=== PATIENT | male | born 1960 | race Caucasian/White ===

== ENCOUNTER 2018-03-18 13:34 | Emergency (ER) | payer SELFPAY ==
[2018-03-18] MEDS ORDERED: METOCLOPRAMIDE HCL ORAL SOLN 10 MG/10 ML UDCUP PO ONE (15:40)
[2018-03-18] MEDS ORDERED: MAG HYDROX/AL HYDROX/SIMETH SUSP 30 ML UDCUP PO ONE (15:40)
[2018-03-18] MEDS ORDERED: LIDOCAINE 2% VISCOUS SOLN 20 ML UDCUP PO ONE (15:40)
--- NOTE | 2018-03-18 15:41 | ER Document Report ---
ED Medical Screen (RME) - General Chief Complaint: Abdominal Pain Stated Complaint: ABDOMINAL PAIN Time Seen by Provider: 03/18/18 15:33 TRAVEL OUTSIDE OF THE [place] IN LAST 30 DAYS: No - Related Data Allergies/Adverse Reactions: No Known Allergies Allergy (Verified 03/18/18 13:37) Past Medical History - Past Medical History Cardiac Medical History: Reports: Hx Hypercholesterolemia, Hx Hypertension - Lisinopril Endocrine Medical History: Reports: Hx Diabetes Mellitus Type 2 - metformin, Hx Hyperthyroidism Renal/ Medical History: Reports: Hx Kidney Stones. Denies: Hx Peritoneal Dialysis GI Medical History: Reports: Hx Gastroesophageal Reflux Disease - Omeprazole - Immunizations Hx Diphtheria, Pertussis, Tetanus Vaccination: Yes Physical Exam - Vital signs Vitals: Temp Pulse Resp BP Pulse Ox 97.8 F 77 18 134/74 H 98 03/18/18 14:07 03/18/18 14:07 03/18/18 14:07 03/18/18 14:07 03/18/18 14:07 Course - Re-evaluation Re-evalutation: 03/18/18 15:40 57-year-old who had dark stools a week and a half ago that presented with worsening abdominal pain and reflux symptoms. I have seen and evaluated this patient, they have undergone a rapid medical screening examination, they will require reevaluation further examination potential further diagnostics and disposition determination by secondary provider. - Vital Signs Vital signs: Temp Pulse Resp BP Pulse Ox 97.8 F 77 18 134/74 H 98 03/18/18 14:07 03/18/18 14:07 03/18/18 14:07 03/18/18 14:07 03/18/18 14:07
--- NOTE | 2018-03-18 16:54 | RADIOLOGY REPORT (SQ) ---
EXAM DESCRIPTION: ACUTE ABDOMEN SERIES COMPLETED DATE/TIME: 03/18/2018 4:43 pm REASON FOR STUDY: abdominal pain COMPARISON: None. NUMBER OF VIEWS: Three views. TECHNIQUE: Frontal chest, supine abdomen and upright/decubitus abdomen radiographic images acquired. LIMITATIONS: None. FINDINGS: CHEST: The heart is normal. The pulmonary vasculature is normal. Lung rockwell are clear o f infiltrates or effusions. Trachea midline. Bony structures intact. No pneumoperitoneum. FREE AIR: None. No abnormal gas collections. BOWEL GAS PATTERN: Scattered gas and fecal material throughout the colon consistent with constipation . Nonspecific bowel-gas pattern. CALCIFICATIONS: No suspicious calcifications. HARDWARE: None in the abdomen. SOFT TISSUES: No gross mass or suggestion of organomegaly. BONES: No acute fracture. No worrisome bone lesions. OTHER: No other significant finding. IMPRESSION: No acute disease. Constipation. TECHNICAL DOCUMENTATION: JOB ID: [id number] SC-[id number] 2010 [employer]- All Rights Reserved Reading location - IP/workstation name: [email or web address]
[2018-03-18 17:29] LABS: ABSOLUTE BASOPHILS # (AUTO) 0.1 10^3/uL (0.0-0.2); ABSOLUTE EOSINOPHILS # (AUTO) 2.3 10^3/uL (0.0-0.6); ABSOLUTE LYMPHOCYTES (AUTO) 3.1 10^3/uL (0.5-4.7); ABSOLUTE MONOCYTES (AUTO) 0.6 10^3/uL (0.1-1.4); ABSOLUTE NEUT (AUTO) 6.2 10^3/uL (1.7-8.2); BASOPHILS % (AUTO) 0.7 % (0-2); EOSINOPHILS % (AUTO) 18.3 % (0-6); HEMATOCRIT 43.9 % (37.9-51.0); HEMOGLOBIN 15.1 g/dL (13.5-17.0); LYMPHOCYTES % (AUTO) 25.3 % (13-45); MEAN CORPUSCULAR HEMOGLOBIN 31.8 pg (27.0-33.4); MEAN CORPUSCULAR HGB CONC 34.3 g/dL (32.0-36.0); MEAN CORPUSCULAR VOLUME 93 fl (80-97); PLATELET COUNT 249 10^3/uL (150-450); RED BLOOD COUNT 4.73 10^6/uL (4.35-5.55); RED CELL DISTRIBUTION WIDTH 13.5 % (11.5-14.0); SEGMENTED NEUTROPHILS % (AUTO) 50.7 % (42-78); TOTAL CELLS COUNTED % (AUTO) 100 %; WHITE BLOOD COUNT 12.3 10^3/uL (4.0-10.5)
[2018-03-18 17:41] LABS: ALANINE AMINOTRANSFERASE 46 U/L (21-72); ALBUMIN 4.4 g/dL (3.5-5.0); ALKALINE PHOSPHATASE 87 U/L (38-126); ANION GAP 10 (5-19); ASPARTATE AMINO TRANSFERASE 30 U/L (17-59); BILIRUBIN,DIRECT 0.2 mg/dL (0.0-0.4); BILIRUBIN,TOTAL 0.5 mg/dL (0.2-1.3); BLOOD UREA NITROGEN 14 mg/dL (7-20); CALCIUM 9.5 mg/dL (8.4-10.2); CARBON DIOXIDE 27 mmol/L (22-30); CHLORIDE 99 mmol/L (98-107); GLUCOSE 151 mg/dL (75-110); LIPASE 34.8 U/L (23-300); POTASSIUM 4.4 mmol/L (3.6-5.0); SODIUM 135.7 mmol/L (137-145); TOTAL PROTEIN 7.2 g/dL (6.3-8.2)
--- NOTE | 2018-03-18 18:55 | ER Document Report ---
ED General - General Chief Complaint: Abdominal Pain Stated Complaint: ABDOMINAL PAIN Time Seen by Provider: 03/18/18 15:33 TRAVEL OUTSIDE OF THE [place] IN LAST 30 DAYS: No - HPI Patient complains to provider of: Abdominal pain Onset: Other - There is a gentleman with recurrent gastritis as well as esophagitis in the past that presents for evaluation of burning abdominal pain today which prompted him to leave work early. He has taken Prilosec in the past but has never had symptoms this bad he says that he does not know what is causing it. Did get some beads of sweat at the time that it began. Denies specifically any episodes of emesis, any change in his bowel movements which have been normal. He not take anything to try and help with this except for some Pepto-Bismol which did seem to help a little bit. Did note that this happened approximately 2 weeks ago and is been developing over signs with some episodes of diarrhea. - Related Data Allergies/Adverse Reactions: No Known Allergies Allergy (Verified 03/18/18 13:37) Past Medical History - General Information source: Patient - Social History Smoking Status: Unknown if Ever Smoked Family History: Reviewed & Not Pertinent Patient has suicidal ideation: No Patient has homicidal ideation: No - Past Medical History Cardiac Medical History: Reports: Hx Hypercholesterolemia, Hx Hypertension - Lisinopril Endocrine Medical History: Reports: Hx Diabetes Mellitus Type 2 - metformin, Hx Hyperthyroidism Renal/ Medical History: Reports: Hx Kidney Stones. Denies: Hx Peritoneal Dialysis GI Medical History: Reports: Hx Gastroesophageal Reflux Disease - Omeprazole - Immunizations Hx Diphtheria, Pertussis, Tetanus Vaccination: Yes Review of Systems - Review of Systems -: Yes All other systems reviewed and negative Physical Exam - Vital signs Vitals: Temp Pulse Resp BP Pulse Ox 97.8 F 77 18 134/74 H 98 03/18/18 14:07 03/18/18 14:07 03/18/18 14:07 03/18/18 14:07 03/18/18 14:07 Interpretation: Normal - General General appearance: Appears well, Alert - HEENT Head: Normocephalic, Atraumatic Eyes: Normal Pupils: PERRL - Respiratory Respiratory status: No respiratory distress Chest status: Nontender Breath sounds: Normal Chest palpation: Normal - Cardiovascular Rhythm: Regular Heart sounds: Normal auscultation Murmur: No - Abdominal Inspection: Normal Distension: No distension Bowel sounds: Normal Tenderness: Nontender Organomegaly: No organomegaly - Back Back: Normal, Nontender - Extremities General upper extremity: Normal inspection, Nontender, Normal color, Normal ROM, Normal temperature General lower extremity: Normal inspection, Nontender, Normal color, Normal ROM, Normal temperature, Normal weight bearing. No: Rajiv's sign - Neurological Neuro grossly intact: Yes Cognition: Normal Orientation: AAOx4 Malka Coma Scale Eye Opening: Spontaneous Malka Coma Scale Verbal: Oriented Patterson Coma Scale Motor: Obeys Commands Patterson Coma Scale Total: 15 Speech: Normal Motor strength normal: LUE, RUE, LLE, RLE Sensory: Normal - Psychological Associated symptoms: Normal affect, Normal mood - Skin Skin Temperature: Warm Skin Moisture: Dry Skin Color: Normal Course - Re-evaluation Re-evalutation: 57-year-old man who presents with burning abdominal pain which makes him nauseous and sometimes belch in the setting of a previous what sounds like enteritis. On examination he is a nondiagnostic abdominal tenderness diffusely mostly periumbilically. Diffuse gassy pain. We will administer a GI cocktail, will administer a stronger painkiller as well. We will obtain CBC CMP as well as a abdominal series. CMP is nondiagnostic, CBC is nondiagnostic. Patient's abdominal series does demonstrate what appears to be constipation throughout the abdomen. On reassessment the patient's abdominal exam is improved, he says that he has no pain at this time after the medications previously. He is able to tolerate p.o., has no nausea at this time no vomiting. We discussed the constipation and his symptoms, we will attempt to control his symptoms utilizing Carafate, MiraLAX, his home antacid, and magnesium citrate. He was strictly encouraged to come back in case of any worsening in his symptoms as it could be a early developing more serious abdominal pathology though not evident at this time such as diverticulitis perforated bowel or otherwise. - Vital Signs Vital signs: Temp Pulse Resp BP Pulse Ox 98 F 68 18 133/76 H 100 03/18/18 19:34 03/18/18 19:34 03/18/18 19:34 03/18/18 19:34 03/18/18 19:34 - Laboratory Result Diagrams: 03/18/18 16:37 03/18/18 16:37 Laboratory results interpreted by me: 03/18/18 03/18/18 16:37 16:37 WBC 12.3 H Eosinophils % 18.3 H Absolute Eosinophils 2.3 H Sodium 135.7 L Glucose 151 H Discharge - Discharge Clinical Impression: Abdominal pain Qualifiers: Abdominal location: unspecified location Qualified Code(s): R10.9 - Unspecified abdominal pain Constipation Qualifiers: Constipation type: unspecified constipation type Qualified Code(s): K59.00 - Constipation, unspecified Gastritis Qualifiers: Gastritis type: unspecified gastritis Chronicity: unspecified Gastritis bleeding: without bleeding Qualified Code(s): K29.70 - Gastritis, unspecified, without bleeding Condition: Good Disposition: HOME, SELF-CARE Instructions: Abdominal Pain ([facility]), Antinausea Medication ([facility]) Additional Instructions: You were seen today in the emergency department for abdominal pain. You had evaluation including blood work as well as x-rays of your abdomen. It appears that you are constipated. You should start taking MiraLAX, 2 servings every 2 hours. If you do not have a bowel movement in 6-8 hours take half of the bottle of magnesium citrate prescribed to you. You do not have a bowel movement 2 hours after taking the magnesium citrate finish the bottle. I believe you also may have bad gastritis at this time. You have been given an acid blocking pill. You have also been given a medicati on to help soothe your stomach. Use these medications as prescribed. You have been given a prescription in case of nausea called Zofran. You should return in case of worsening fevers, chills, vomiting or inability to eat or drink. Prescriptions: Magnesium Citrate [Citrate of Magnesia 296 ml Bottle] 296 ml PO DAILY #1 bottle Ondansetron [Zofran Odt 4 mg Tablet] 1 - 2 tab PO Q4H PRN #15 tab.rapdis PRN Reason: For Nausea/Vomiting Polyethylene Glycol 3350 [Miralax Powder 17 gm/Packet] 1 packet PO BID #1 pkg Sucralfate [Carafate] 1 gm PO TID #30 oral.susp Referrals: [facility] [Provider Group] - Follow up as needed
[2018-03-18 19:35] VITALS: BP 133/76
== END 2018-03-18 19:44 | disposition home or self-care (01) ==
LOC: ER 13:34
DX: K59.00 Constipation, unspecified (principal); K29.70 Gastritis, unspecified, without bleeding; I10 Essential (primary) hypertension; E11.9 Type 2 diabetes mellitus without complications
CPT/HCPCS: 99284; 36415; 83690; 85025; 80053; 74022; J3490

== ENCOUNTER 2018-08-06 17:50 | Emergency (ER) | payer SELFPAY ==
[2018-08-06 17:56] VITALS: BP 132/69
--- NOTE | 2018-08-06 18:26 | ER Document Report ---
HPI - HPI Time Seen by Provider: 08/06/18 18:11 Pain Level: 2 Notes: Patient is a 58-year-old male with a history of type 2 diabetes who presents complaining of generalized pruritic rash that began 2 days ago. Patient states that he has tried Benadryl minimal relief. He has not had any new clothing, foods, detergents, soaps, chemicals. No known exposure to insect bites or ticks. No recent travel or illness. Patient states that he otherwise feels well aside from being pruritic. He is eating and drinking without difficulty. He is urinating normally. Denies drug allergies. Denies any headache, fever, neck pain, URI, sore throat, chest pain, palpitations, syncope, cough, shortness of breath, wheeze, dyspnea, abdominal pain, nausea/vomiting/diarrhea, urinary retention, dysuria, hematuria, joint pain. - ROS Systems Reviewed and Negative: Yes All other systems reviewed and negative - REPRODUCTIVE Reproductive: DENIES: : Past Medical History - Social History Smoking Status: Never Smoker Family History: Reviewed & Not Pertinent - Past Medical History Cardiac Medical History: Reports: Hx Hypercholesterolemia, Hx Hypertension - Lisinopril Endocrine Medical History: Reports: Hx Diabetes Mellitus Type 2 - metformin, Hx Hyperthyroidism Renal/ Medical History: Reports: Hx Kidney Stones. Denies: Hx Peritoneal Dialysis GI Medical History: Reports: Hx Gastroesophageal Reflux Disease - Omeprazole - Immunizations Hx Diphtheria, Pertussis, Tetanus Vaccination: Yes Vertical Provider Document - CONSTITUTIONAL Agree With Documented VS: Yes Notes: PHYSICAL EXAMINATION: GENERAL: Well-appearing, well-nourished and in no acute distress. HEAD: Atraumatic, normocephalic. EYES: Pupils equal round and reactive to light, extraocular movements intact, sclera anicteric, conjunctiva are normal. ENT: Nares patent and without discharge. oropharynx clear without exudates. No tonsilar hypertrophy or erythema. Moist mucous membranes. NECK: Normal range of motion, supple without lymphadenopathy LUNGS: Breath sounds clear to auscultation bilaterally and equal. No wheezes rales or rhonchi. HEART: Regular rate and rhythm without murmurs, rubs, gallops. ABDOMEN: Soft, nontender, nondistended abdomen. No guarding, no rebound. Normal bowel sounds present. No CVA tenderness bilaterally. Musculoskeletal: FROM to passive/active. Strength 5+/5. Extremities: No cyanosis, clubbing, or edema b/l. Peripheral pulses 2+. Capil guy refill less than 3 seconds. NEUROLOGICAL: Normal speech, normal gait. PSYCH: Normal mood, normal affect. SKIN: maculopapular mildly erythemic rash noted generalized to the trunk/extremities sparing the palms/soles/oral mucosa. Non-tender. No fluctuance, induration, or streaks. - INFECTION CONTROL TRAVEL OUTSIDE OF THE [place] IN LAST 30 DAYS: No Course - Re-evaluation Re-evalutation: 08/06/18 19:00 Patient is an afebrile, well-hydrated, 58-year-old male who presents with a nonspecific skin rash that resembles a heat rash. Vitals are acceptable without significant tachycardia, tachypnea, or hypoxia. PE is otherwise unremarkable. Patient was evaluated by Dr. Michaud as well. Patient is nontoxic-appearing and is tolerating p.o. without difficulty. No labs or imaging warranted. Patient was given Benadryl and Pepcid today. Low suspicion for any SJS, and excising fasciitis, Belfair spotted fever, Lyme disease, cellulitis, SSS, sepsis, meningitis, or other systemic emergent condition at this time. Patient is a diabetic so we will avoid steroids. We will send him home with a prescription for Atarax. Conservative measures as reviewed. Recheck with your PCM in 3 to 5 days. Return to the ED with any other worsening/concerning symptoms. Patient is in agreement. - Vital Signs Vital signs: Temp Pulse Resp BP Pulse Ox 97.9 F 87 18 132/69 H 95 08/06/18 17:54 08/06/18 17:54 08/06/18 17:54 08/06/18 17:54 08/06/18 17:54 Discharge - Discharge Clinical Impression: Rash and nonspecific skin eruption, Heat rash Condition: Stable Disposition: HOME, SELF-CARE Additional Instructions: Keep the skin clean Wash with tar-based Neutrogena soap and water Benadryl/Pepcid may help Avoid taking hot baths or showers. Cool baths and showers may help Avoid excessive exposure to heat Take medication as directed Monitor for any worsening symptoms Recheck with your PCM in 3-5 days Consider consult with dermatology for ongoing/worsening symptoms Return to the ED with any worsening symptoms and/or development of fever, headache, chest pain, palpitations, syncope, shortness of breath, trouble breathing, abdominal pain, n/v/d, abscess, purulent discharge, red streaks, worsening swelling, or other worsening symptoms that are concerning to you. Prescriptions: Hydroxyzine Pamoate [Vistaril 25 mg Capsule] 25 mg PO TID PRN #30 capsule PRN Reason: Forms: Elevated Blood Pressure Referrals: DORIE DIAZ DO [ACTIVE STAFF] - Follow up as needed
[2018-08-06] MEDS ORDERED: FAMOTIDINE 20 MG TABLET PO ONE (18:30)
[2018-08-06] MEDS ORDERED: DIPHENHYDRAMINE HCL 50 MG CAPSULE PO ONE (18:30)
[2018-08-06] MEDS ORDERED: HYDROXYZINE PAMOATE 25 MG CAPSULE PO ONE (19:05)
== END 2018-08-06 19:13 | disposition home or self-care (01) ==
LOC: ER 17:50
DX: L74.0 Miliaria rubra (principal); R21 Rash and other nonspecific skin eruption; I10 Essential (primary) hypertension; Z79.899 Other long term (current) drug therapy; E11.9 Type 2 diabetes mellitus without complications; Z79.84 Long term (current) use of oral hypoglycemic drugs
CPT/HCPCS: 99282

== ENCOUNTER 2019-01-03 16:19 | Emergency (ER) | payer SELFPAY ==
[2019-01-03] MEDS ORDERED: ACETAMINOPHEN 325 MG TABLET PO ONE (16:46)
[2019-01-03] MEDS ORDERED: KETOROLAC TROMETHAMINE INJ/PF 30 MG/1 ML SDV IV ONE (16:46)
[2019-01-03] MEDS ORDERED: NORMAL SALINE 1000 ML 1,000 ML IV ONE (16:47)
--- NOTE | 2019-01-03 16:50 | ER Document Report ---
ED Medical Screen (RME) - General Chief Complaint: Urinary Problem Stated Complaint: BACK PAIN, DIFFICULTY URINATING Time Seen by Provider: 01/03/19 16:41 Notes: Patient is a 58-year-old male who presents emergency department with a chief complaint of back pain. His pain started about 4 days ago. He also is having urinary symptoms such as frequency, urgency, and burning. 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 Past medical history includes diabetes and hypothyroidism. Exam: Bilateral CVA tenderness. I have greeted and performed a rapid initial assessment of this patient. A comprehensive ED assessment and evaluation of the patient, analysis of test results and completion of medical decision making process will be conducted by an additional ED providers. TRAVEL OUTSIDE OF THE [place] IN LAST 30 DAYS: No - Related Data Allergies/Adverse Reactions: No Known Allergies Allergy (Verified 01/03/19 16:28) Home Medications: lovastatin,trulicity, metformin, levothyroxine lisinopril Past Medical History - Social History Chew tobacco use (# tins/day): No Frequency of alcohol use: None Drug Abuse: None - Past Medical History Cardiac Medical History: Reports: Hx Hypercholesterolemia, Hx Hypertension - Lisinopril Endocrine Medical History: Reports: Hx Diabetes Mellitus Type 2 - metformin, Hx Hyperthyroidism Renal/ Medical History: Reports: Hx Kidney Stones. Denies: Hx Peritoneal Dialysis GI Medical History: Reports: Hx Gastroesophageal Reflux Disease - Omeprazole - Immunizations Hx Diphtheria, Pertussis, Tetanus Vaccination: Yes Physical Exam - Vital signs Vitals: Temp Pulse Resp BP Pulse Ox 98.0 F 97 20 122/62 96 01/03/19 16:29 01/03/19 16:29 01/03/19 16:29 01/03/19 16:29 01/03/19 16:29 Course - Vital Signs Vital signs: Temp Pulse Resp BP Pulse Ox 98.0 F 97 20 122/62 96 01/03/19 16:29 01/03/19 16:29 01/03/19 16:29 01/03/19 16:29 01/03/19 16:29
[2019-01-03 17:33] LABS: ABSOLUTE BASOPHILS # (AUTO) 0.1 10^3/uL (0.0-0.2); ABSOLUTE EOSINOPHILS # (AUTO) 0.2 10^3/uL (0.0-0.6); ABSOLUTE LYMPHOCYTES (AUTO) 2.6 10^3/uL (0.5-4.7); ABSOLUTE MONOCYTES (AUTO) 0.6 10^3/uL (0.1-1.4); ABSOLUTE NEUT (AUTO) 4.6 10^3/uL (1.7-8.2); BASOPHILS % (AUTO) 1.1 % (0-2); HEMOGLOBIN 14.8 g/dL (13.5-17.0); LYMPHOCYTES % (AUTO) 32.3 % (13-45); MEAN CORPUSCULAR HEMOGLOBIN 31.8 pg (27.0-33.4); MEAN CORPUSCULAR HGB CONC 34.5 g/dL (32.0-36.0); MEAN CORPUSCULAR VOLUME 92 fl (80-97); MONOCYTES % (AUTO) 7.3 % (3-13); PLATELET COUNT 256 10^3/uL (150-450); RED BLOOD COUNT 4.67 10^6/uL (4.35-5.55); RED CELL DISTRIBUTION WIDTH 13.8 % (11.5-14.0); SEGMENTED NEUTROPHILS % (AUTO) 56.3 % (42-78); TOTAL CELLS COUNTED % (AUTO) 100 %; WHITE BLOOD COUNT 8.2 10^3/uL (4.0-10.5)
[2019-01-03 17:42] LABS: APPEARANCE,URINE SLIGHTLY-CLOUDY; BILIRUBIN,URINE NEGATIVE (NEGATIVE); COLOR,URINE YELLOW; GLUCOSE, URINE 50 mg/dL (NEGATIVE); KETONES,URINE NEGATIVE (NEGATIVE); LEUKOCYTE ESTERASE,URINE LARGE (NEGATIVE); NITRITE,URINE NEGATIVE (NEGATIVE); PROTEIN,URINE NEGATIVE (NEGATIVE); URINE SPECIFIC GRAVITY 1.018; UROBILINOGEN,URINE NEGATIVE mg/dL (<2.0)
--- NOTE | 2019-01-03 18:06 | RADIOLOGY REPORT (SQ) ---
EXAM DESCRIPTION: CT ABD/PELVIS NO ORAL OR IV COMPLETED DATE/TIME: 01/03/2019 5:39 pm REASON FOR STUDY: back pain; urinary symptoms COMPARISON: 07/24/2014 TECHNIQUE: CT scan of the abdomen and pelvis performed without intravenous or oral contrast. Images reviewed with lung, soft tissue, and bone windows. Reconstructed coronal and sagittal MPR images revi ewed. All images stored on PACS. All CT scanners at this facility use dose modulation, iterative reconstruction, and/or weight based d osing when appropriate to reduce radiation dose to as low as reasonably achievable (ALARA). [facility]: Dose Right [facility]: CareDose [facility]: Dose Right [facility]: Teradose 4D [facility]: [employer] RADIATION DOSE: mGy. LIMITATIONS: None. FINDINGS: LOWER CHEST: No significant findings. No nodules or infiltrates. NON-CONTRASTED LIVER, SPLEEN, ADRENALS: The liver is diffusely hypoattenuating. No masses. The sple en and adrenal glands are unremarkable. PANCREAS: No masses. No peripancreatic inflammatory changes. GALLBLADDER: No identified stones by CT criteria. No inflammatory changes to suggest cholecystitis. RIGHT KIDNEY AND URETER: No suspicious masses. Assessment limited by lack of IV contrast. No signif icant calcifications. No hydronephrosis or hydroureter. LEFT KIDNEY AND URETER: No suspicious masses. Assessment limited by lack of IV contrast. No signifi cant calcifications. No hydronephrosis or hydroureter. AORTA AND RETROPERITONEUM: No aneurysm. No retroperitoneal masses or adenopathy. BOWEL AND PERITONEAL CAVITY: No obvious masses or inflammatory changes. No free fluid. APPENDIX: Normal. PELVIS, BLADDER, AND ABDOMINAL WALL:No abnormal masses. No free fluid. Bladder normal. BONES: No significant findings. OTHER: No other significant finding. IMPRESSION: Hepatic steatosis. No other significant finding in the abdomen or pelvis. COMMENT: Quality ID # [id number]: Final reports with documentation of one or more dose reduction techniques (e.g., Automated exposure control, adjustment of the mA and/or kV according to patient size, use of iterative reconstruction technique) TECHNICAL DOCUMENTATION: JOB ID: [id number] [employer]- All Rights Reserved Reading location - IP/workstation name: [email or web address]
[2019-01-03 18:07] LABS: ALBUMIN 4.4 g/dL (3.5-5.0); ALKALINE PHOSPHATASE 121 U/L (38-126); ANION GAP 13 (5-19); ASPARTATE AMINO TRANSFERASE 26 U/L (17-59); BILIRUBIN,DIRECT 0.2 mg/dL (0.0-0.4); BILIRUBIN,TOTAL 0.5 mg/dL (0.2-1.3); BLOOD UREA NITROGEN 13 mg/dL (7-20); CALCIUM 9.9 mg/dL (8.4-10.2); CARBON DIOXIDE 23 mmol/L (22-30); CHLORIDE 102 mmol/L (98-107); GLUCOSE 239 mg/dL (75-110); POTASSIUM 4.3 mmol/L (3.6-5.0); TOTAL PROTEIN 7.3 g/dL (6.3-8.2)
[2019-01-03] MEDS ORDERED: CEFTRIAXONE 2 GM/D5W RTU 2 GM/50 ML RTUPB IV ONE (18:28)
--- NOTE | 2019-01-03 18:30 | ER Document Report ---
ED GI/ - General Chief Complaint: Urinary Problem Stated Complaint: BACK PAIN, DIFFICULTY URINATING Time Seen by Provider: 01/03/19 16:41 Primary Care Provider: WAYNE JAMES MD [Primary Care Provider] - Follow up in 3-5 days Mode of Arrival: Ambulatory Information source: Patient Notes: 58-year-old male presented to ED for complaint of burning frequency and urgency with urination x4 days. He states he started having pain in his back yesterday. He has pain and bilateral flank areas. When he was seen in the pit urine blood and CT were ordered. The CAT scan is negative for any flank pain he does have fatty liver. He also has a urinary tract infection. I have ordered him Rocephin 2 g IM he is already had Toradol Tylenol and a liter of fluids. We will send his urine for culture and sending home on Bactrim TRAVEL OUTSIDE OF THE [place] IN LAST 30 DAYS: No - HPI Patient complains to provider of: Other - Burning frequency urgency with urine and flank pain Onset: Other - Frequency and urgency for 4 days flank pain since yesterday Timing/Duration: Gradual, Worse Quality of pain: Burning Severity at maximum: Severe Severity in ED: Moderate Pain Level: 5 Location: Left flank, Right flank, Pelvis Associated symptoms: Hematuria Exacerbated by: Sitting, Movement, Walking Relieved by: Denies Similar symptoms previously: No Recently seen / treated by doctor: No - Related Data Allergies/Adverse Reactions: No Known Allergies Allergy (Verified 01/03/19 16:28) Home Medications: lovastatin,trulicity, metformin, levothyroxine lisinopril Past Medical History - General Information source: Patient - Social History Smoking Status: Never Smoker Chew tobacco use (# tins/day): No Frequency of alcohol use: None Drug Abuse: None Lives with: Family Family History: Reviewed & Not Pertinent Patient has suicidal ideation: No Patient has homicidal ideation: No - Past Medical History Cardiac Medical History: Reports: Hx Hypercholesterolemia, Hx Hypertension - Lisinopril Pulmonary Medical History: Reports: None EENT Medical History: Reports: None Neurological Medical History: Reports: None Endocrine Medical History: Reports: Hx Diabetes Mellitus Type 2 - metformin, Hx Hyperthyroidism Renal/ Medical History: Reports: Hx Kidney Stones Malignancy Medical History: Denies None GI Medical History: Reports: Hx Gastroesophageal Reflux Disease - Omeprazole Musculoskeletal Medical History: Reports Hx Arthritis, Reports Hx Musculoskeletal Deformity, Reports Hx Musculoskeletal Trauma Skin Medical History: Reports None Psychiatric Medical History: Reports: None Traumatic Medical History: Reports: None Infectious Medical History: Reports: None Past Surgical History: Reports: Hx Orthopedic Surgery - Back - Immunizations Hx Diphtheria, Pertussis, Tetanus Vaccination: Yes Review of Systems - Review of Systems Constitutional: No symptoms reported EENT: No symptoms reported Cardiovascular: No symptoms reported Respiratory: No symptoms reported Gastrointestinal: No symptoms reported Genitourinary: Burning, Frequency, Flank pain, Urgency Male Genitourinary: No symptoms reported Musculoskeletal: Back pain Skin: No symptoms reported Hematologic/Lymphatic: No symptoms reported Neurological/Psychological: No symptoms reported -: Yes All other systems reviewed and negative Physical Exam - Vital signs Vitals: Temp Pulse Resp BP Pulse Ox 98.0 F 97 20 122/62 96 01/03/19 16:27 01/03/19 16:27 01/03/19 16:27 01/03/19 16:27 01/03/19 16:27 Interpretation: Normal - General General appearance: Appears well, Alert - HEENT Head: Normocephalic, Atraumatic Eyes: Normal Pupils: PERRL - Respiratory Respiratory status: No respiratory distress Chest status: Nontender Breath sounds: Normal Chest palpation: Normal - Cardiovascular Rhythm: Regular Heart sounds: Normal auscultation Murmur: No - Abdominal Inspection: Normal Distension: No distension Bowel sounds: Normal Tenderness: Nontender Organomegaly: No organomegaly - Genitourinary Notes: Burning frequency with urination - Back Back: Normal, CVA tenderness - Bilateral - Extremities General upper extremity: Normal inspection, Nontender, Normal color, Normal ROM, Normal temperature General lower extremity: Normal inspection, Nontender, Normal color, Normal ROM, Normal temperature, Normal weight bearing. No: Arjiv's sign - Neurological Neuro grossly intact: Yes Cognition: Normal Orientation: AAOx4 [place] Coma Scale Eye Opening: Spontaneous [place] Coma Scale Verbal: Oriented [place] Coma Scale Motor: Obeys Commands [place] Coma Scale Total: 15 Speech: Normal Motor strength normal: LUE, RUE, LLE, RLE Sensory: Normal - Psychological Associated symptoms: Normal affect, Normal mood - Skin Skin Temperature: Warm Skin Moisture: Dry Skin Color: Normal Course - Re-evaluation Re-evalutation: 01/03/19 18:40 Patient was treated with Rocephin 2 g in the ED and discharged home on Bactrim. He started off with burning frequency and urgency with urine and then progressed to bilateral flank pain. CAT scans are negative and have been discussed with patient. Patient had an IV brought in so the Rocephin was given in the IV. - Vital Signs Vital signs: Temp Pulse Resp BP Pulse Ox 98.0 F 76 18 141/80 H 95 01/03/19 19:12 01/03/19 19:12 01/03/19 19:12 01/03/19 19:12 01/03/19 19:12 - Laboratory Result Diagrams: 01/03/19 16:52 01/03/19 16:52 Laboratory results interpreted by me: 01/03/19 01/03/19 16:52 16:52 Glucose 239 H Urine Glucose (UA) 50 H Urine Blood SMALL H Ur Leukocyte Esterase LARGE H Urine Ascorbic Acid 40 H - Diagnostic Test Radiology reviewed: Image reviewed, Reports reviewed Discharge - Discharge Clinical Impression: Pyelonephritis Condition: Stable Disposition: HOME, SELF-CARE Additional Instructions: Pyelonephritis Your evaluation shows evidence of pyelonephritis. This is an infection in the kidney. Typical symptoms are fever, pain in the flank, pain on urination, and frequent urination. Many cases of pyelonephritis can be treated at home. Hospital care may be necessary for patients who are very ill, or elderly or . Pyelonephritis is treated with antibiotics. Be sure to take all the medication as prescribed. Drink plenty of liquids (about three quarts per day). You may take acetaminophen for fever. You should feel significantly improved within two days. You should have a recheck of your urine in about one week to insure that the infection is gone. Return for a re-examination if your symptoms worsen in any way -- such as high fever, shaking chills, severe weakness or dizziness, severe pain, or inability to pass your urine. Rocephin You have been given an injection of an antibiotic called Rocephin (ceftriaxone). Sometimes the injection must be combined with antibiotic pills. For some infections, such as an uncomplicated ear infection, Rocephin provides all the antibiotic that's needed. The antibiotic will be in your body for about two days. For serious infections, we usually repeat doses of Rocephin daily. Side effects are very unusual following a shot. Women may develop vaginal yeast infections, and babies can get yeast (thrush) in the mouth following the use of antibiotics. Contact your physician if you have symptoms with this medication. Allergy to this antibiotic can result in hives, wheezing, faintness, or itching. If symptoms of allergy occur, call the doctor at once. TRIMETHOPRIM-SULFA: You have been given a prescription for trimethoprim-sulfa (TMS, Septra, Bactrim). This is a combination antibiotic of the sulfa class, often used for urinary tract infections, middle ear infections, bronchitis, shigella intestinal infection, and Pneumocystis pneumonia. TMS is usually well-tolerated. Occasional side effects include nausea and decreased appetite. Septra is not recommended for infants less than two months of age. Do not take this medication if you have experienced severe side effects or allergy to sulfa medicine. You should stop this medicine at once and contact your physician if you develop any rash, joint pain, shortness of breath, bruising, or jaundice (yellow color in the skin), or if you develop any other new or unusual symptoms. URINARY ANESTHETIC AGENT: You have been given a medication (Pyridium) for urinary tract discomfort. This medicine numbs the lining of the bladder and urethra, resulting in less pain, burning, and urgency. You may take it as needed, according to instructions. When the symptoms resolve, you can stop this medication (be sure to continue any other medications the doctor has given you). This medicine turns the urine a dark orange. It may stain underwear. Occasionally, it can cause nausea. Return for evaluation if there are any unexpected effects, such as itching, hives, or shortness of breath. FOLLOW-UP CARE: If you have been referred to a physician for follow-up care, call the physicians office for an appointment as you were instructed or within the next two days. If you experience worsening or a significant change in your symptoms, notify the physician immediately or return to the Emergency Department at any time for re-evaluation. Prescriptions: Sulfamethoxazole/Trimethoprim [Bactrim Ds Tablet] 1 each PO BID #20 tablet Phenazopyridine HCl [Pyridium 100 Mg Tablet] 100 mg PO TIDP PRN #15 tablet PRN Reason: burning with urination Forms: Return to Work Referrals: WAYNE JAMES MD [Primary Care Provider] - Follow up in 3-5 days
[2019-01-03] MEDS ORDERED: PHENAZOPYRIDINE HCL 200 MG TABLET PO ONE (18:31)
[2019-01-03] MEDS ORDERED: SULFAMETHOXAZOLE/TRIMETHOPRIM 800-160 MG TABLET PO ONE (18:41)
[2019-01-03 19:15] VITALS: BP 141/80
== END 2019-01-03 19:15 | disposition home or self-care (01) ==
LOC: ER 16:19
DX: N12 Tubulo-interstitial nephritis, not specified as acute or chronic (principal); R39.198 Other difficulties with micturition; R31.9 Hematuria, unspecified; M54.9 Dorsalgia, unspecified; R30.9 Painful micturition, unspecified; R35.0 Frequency of micturition; R39.15 Urgency of urination; Z79.899 Other long term (current) drug therapy; I10 Essential (primary) hypertension; E11.9 Type 2 diabetes mellitus without complications
CPT/HCPCS: 36415; 85025; 80053; 81001; 74176; J1885; J3490; J7030; J0696; 87086; 87088; 96361; 96374; 99284